=== PATIENT | female | born 1935 | race Caucasian/White ===

== ENCOUNTER → 2017-03-02 | Outpatient (CLI) | payer MEDICARE, OTHER | END | disposition home or self-care (01) | LOC: GMAM 10:21 | PROVIDERS: ATTEND Family Medicine | DX: E53.8 Deficiency of other specified B group vitamins (principal) ==

== ENCOUNTER → 2017-03-19 | Outpatient (CLI) | payer MEDICARE, OTHER | END | disposition home or self-care (01) | LOC: GMAM 10:49 | PROVIDERS: ATTEND Family Medicine | DX: R80.9 Proteinuria, unspecified (principal) ==

== ENCOUNTER 2017-07-20 11:58 | Emergency (ER) | payer MEDICARE, OTHER ==
[2017-07-20 12:29] VITALS: TEMP 96.8
--- NOTE | 2017-07-20 12:54 | RAD ---
Single frontal view pelvis. Two-view left hip. Indication: Pain s/p fall 4 days ago Comparison: None. Impression: Prior ORIF of a left hip fracture. No acute fracture the left hip or pelvis identified, however evaluation is limited due to the degree of osteopenia. If high clinical concern for fracture, correlation with CT or MRI recommended. 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 Lower lumbar disc disease. Electronically signed by: Travis Gupta MD 07/20/2017 12:53 PM CDT
--- NOTE | 2017-07-20 13:07 | ED.PDOC ---
History of Present Illness - General Chief Complaint: Lower Extremity Injury Stated Complaint: fall on Sunday Time Seen by Provider: 07/20/17 12:23 Source: patient, RN notes reviewed, Vital Signs reviewed, family - Niece Exam Limitations: no limitations - History of Present Illness Initial Comments: Patient lost her balance and fell on 07/16/17. She is still having L posterior hip pain and niece is concerned. She also hit her elbow which is very bruised but does not hurt at all. She reports the pain is better when she first gets up in the morning. She has been limiting her walking due to the pain. Occurred: other - 4 days ago Pain - Lower Extremity: moderate: Left Thigh/Hip Method of Injury: fell Improving Factors: rest Worsening Factors: movement Allergies/Adverse Reactions: Allergies Pneumococcal Vaccine Allergy (Verified 07/20/17 12:32) Home Medications: Ambulatory Orders Aspirin [Goodsense Aspirin Low Dos] 81 mg PO DAILY 07/13/14 Cephalexin 500 mg PO BEDTIME 07/13/14 Doxazosin Mesylate 4 mg PO DAILY 07/13/14 Pregabalin [Lyrica] 75 mg PO BEDTIME 07/13/14 Alprazolam [Xanax] 1 mg PO BID 03/27/16 amLODIPine BESYLATE [Norvasc] 10 mg PO DAILY 03/27/16 Doxycycline Hyclate 50 mg PO BID #15 cap 03/29/16 Review of Systems - Review of Systems Constitutional: States: no symptoms reported Respiratory: States: no symptoms reported Cardiology: States: no symptoms reported Gastrointestinal/Abdominal: States: no symptoms reported Musculoskeletal: States: see HPI Skin: States: see HPI Neurological: States: no symptoms reported, numbness, paresthesia, tingling, weakness All other Systems: No Change from Baseline Past Medical History (General) - Patient Medical History Hx Seizures: No Hx Stroke: No Hx Dementia: No Hx Asthma: No Hx of COPD: No Hx Cardiac Disorders: No Hx Congestive Heart Failure: No Hx Pacemaker: No Hx Hypertension: Yes Hx Thyroid Disease: No Hx Diabetes: No Hx Gastroesophageal Reflux: No Hx Renal Disease: No Hx Cancer: No Hx of HIV: No Hx Hepatitis C: No Hx MRSA: No Surgical History: other - Vaccination History Hx Tetanus, Diphtheria Vaccination: No Hx Influenza Vaccination: Yes - 2017 Hx Pneumococcal Vaccination: - allergic - Social History Hx Tobacco Use: No Hx Chewing Tobacco Use: No Hx Alcohol Use: No Hx Substance Use: No Hx Substance Use Treatment: No Hx Depression: No Hx Physical Abuse: No Hx Emotional Abuse: No Hx Suspected Abuse: No - Female History Patient : No Family Medical History - Family History Mother Living Status: Hx Family Hypertension: Yes Father Living Status: Hx Family Stroke: Yes Physical Exam - Physical Exam General Appearance: Alert, Comfortable, No apparent distress, Well Developed, Well Groomed, Well Hydrated, Well Nourished Neck: supple, normal inspection Cardiovascular/Respiratory: normal peripheral pulses Thigh/Hip: normal inspection, non-tender, no evidence of injury, normal ROM Leg: normal inspection, non-tender, no evidence of injury, normal ROM Knee: normal inspection, non-tender, no evidence of injury, normal ROM Foot: normal inspection, non-tender, no evidence of injury, normal ROM Neuro/Tendon: normal sensation, normal motor functions, normal tendon functions , no evidence tendon injury Mental Status: alert, oriented x 3 Skin: normal color - exceept L elbow: ecchymosis w/o tenderness. FROM, warm/dry Comments: Vital Signs 07/20/17 12:04 Temperature 96.8 F L Pulse Rate [ 94 H left brachial] Respiratory 16 Rate Blood Pressure 126/66 [left brachial] O2 Sat by Pulse 94 L Oximetry Progress - EKG/XRAY/CT XRAY: L hip: no fracture per Rad - No fracture Departure - Departure Clinical Impression: Contusion of left elbow, initial encounter Contusion of hip Qualifiers: Encounter type: initial encounter Laterality: left Qualified Code(s): S70.02XA - Contusion of left hip, initial encounter Time of Disposition: 13:09 Disposition: Discharge to Home or Self Care Condition: Fair Departure Forms: ED Discharge - Pt. Copy, Patient Portal Self Enrollment Instructions: DI for Contusion Diet: resume usual diet Activity: increase activity as tolerated Referrals: Wilberto Lozada MD [Primary Care Provider] - 1-2 Weeks Home Medications: Ambulatory Orders Aspirin [Goodsense Aspirin Low Dos] 81 mg PO DAILY 07/13/14 Cephalexin 500 mg PO BEDTIME 07/13/14 Doxazosin Mesylate 4 mg PO DAILY 07/13/14 Pregabalin [Lyrica] 75 mg PO BEDTIME 07/13/14 Alprazolam [Xanax] 1 mg PO BID 03/27/16 amLODIPine BESYLATE [Norvasc] 10 mg PO DAILY 03/27/16 Doxycycline Hyclate 50 mg PO BID #15 cap 03/29/16
[2017-07-20 13:30] VITALS: BP 122/67; O2SAT 96
== END 2017-07-20 13:26 | disposition home or self-care (01) ==
LOC: ER 11:58
DX: S70.02XA Contusion of left hip, initial encounter (principal); S50.02XA Contusion of left elbow, initial encounter; I10 Essential (primary) hypertension; Z79.82 Long term (current) use of aspirin; Z88.7 Allergy status to serum and vaccine; W19.XXXA Unspecified fall, initial encounter; Y92.9 Unspecified place or not applicable

== ENCOUNTER → 2017-08-07 | Outpatient (CLI) | payer MEDICARE, OTHER ==
--- NOTE | 2017-08-07 19:01 | MRI ---
Study: MRI of the Left Hip. Indication: HIP PAIN Technique: Multiplanar, multi sequence MRI of the left hip was obtained without intravenous contrast. Metal artifact reduction techniques utilized. Comparison: Radiograph July 20, 2017. Findings: Prior ORIF of a left femoral neck fracture with 3 surgical screws noted. Susceptibility artifact present despite metal artifact reduction techniques. Subacute appearing nondisplaced fractures of the left pubic root and left inferior pubic ramus noted with marrow edema and mild callus formation. Associated intramuscular edema within the left adductor musculature. A left zone 1 and possibly zone 2 subacute to acute left sacral ala fracture noted as well with significant marrow edema throughout the left sacral ala. Severe pubic symphysis osteoarthritis noted with presumably reactive marrow edema within the parasymphyseal pubic bones. No acute fracture of the femoral necks identified. At least mild bilateral hip osteoarthritis. Pronounced lower lumbar disc disease. No high-grade pelvic tendon tear. Impression: Subacute appearing nondisplaced left pubic root, left inferior pubic ramus, and left sacral ala fractures as above. Additional findings as above. Electronically signed by: Travis Gupta MD 08/07/2017 7:00 PM [facility]
== END | disposition home or self-care (01) ==
LOC: MRI 11:11
PROVIDERS: ATTEND Family Medicine
DX: M16.12 Unilateral primary osteoarthritis, left hip (principal)

== ENCOUNTER → 2018-03-26 | Outpatient (CLI) | payer MEDICARE, OTHER ==
--- NOTE | 2018-03-26 17:06 | US ---
EXAM DESCRIPTION: THYROID ULTRASOUND CLINICAL INFORMATION: Palpable lump on the left facial cheek, next to the nose for several weeks. Injury to the area years ago. COMPARISON: None Available. TECHNIQUE: Transcutaneous scanning: Santo-scale and Doppler modes. FINDINGS: A homogeneous hypoechoic soft tissue mass is noted in the subcutaneous tissues with smooth and lobulated margins measuring 3.2 x 1.5 x 0.9 cm. Parallel to the skin surface. Small feeding vessel is noted. Posterior acoustic enhancement. No adjacent distinct solid masses or cysts. No large calcifications or parenchymal edema. IMPRESSION: Probably benign subcutaneous lesion on the left facial cheek medially abutting the nose. Smooth margins and homogeneous low echoes. Consider dermatology consult. Electronically signed by: Bacilio Jasso MD 03/26/2018 5:05 PM CDT
== END ==
LOC: US 13:56
PROVIDERS: ATTEND Family Medicine
DX: R22.0 Localized swelling, mass and lump, head (principal)

== ENCOUNTER → 2018-04-07 | Outpatient (CLI) | payer MEDICARE, OTHER | LOC: YCHH 08:47 | PROVIDERS: ATTEND Family Medicine | DX: E53.8 Deficiency of other specified B group vitamins (principal); N18.9 Chronic kidney disease, unspecified; D64.9 Anemia, unspecified; E78.5 Hyperlipidemia, unspecified; G30.9 Alzheimer's disease, unspecified ==

== ENCOUNTER → 2018-10-02 | Outpatient (CLI) | payer MEDICARE, OTHER | LOC: YCHH 08:44 | PROVIDERS: ATTEND Family Medicine | DX: N18.9 Chronic kidney disease, unspecified (principal); E53.8 Deficiency of other specified B group vitamins; E78.5 Hyperlipidemia, unspecified; D64.9 Anemia, unspecified ==

== ENCOUNTER → 2019-01-08 | Outpatient (CLI) | payer MEDICARE, OTHER | LOC: LAB.O 14:17 | PROVIDERS: ATTEND Urology | DX: R31.0 Gross hematuria (principal) ==

== ENCOUNTER → 2019-05-20 | Outpatient (CLI) | payer MEDICARE, OTHER | LOC: GMAM 10:48 | PROVIDERS: ATTEND Family Medicine | DX: E53.8 Deficiency of other specified B group vitamins (principal); I10 Essential (primary) hypertension ==

== ENCOUNTER → 2019-07-08 | Outpatient (CLI) | payer MEDICARE, OTHER | LOC: GMAM 14:36 | PROVIDERS: ATTEND Family Medicine | DX: R10.13 Epigastric pain (principal); N39.0 Urinary tract infection, site not specified ==

== ENCOUNTER 2019-07-14 17:15 | Emergency (ER) | payer MEDICARE, OTHER ==
[2019-07-14 19:18] VITALS: TEMP 97.9
[2019-07-14] MEDS ORDERED: MORPHINE SULFATE INJ 10 MG/ML VIAL IV ONE (19:41)
[2019-07-14] MEDS ORDERED: SODIUM CHLORIDE 0.9% 1000ML 500 ML IVS ONE (19:41)
[2019-07-14] MEDS ORDERED: ONDANSETRON INJ 4 MG/2 ML VIAL IV ONE (19:41)
--- NOTE | 2019-07-14 19:45 | ED.PDOC ---
History of Present Illness - General Chief Complaint: Abdominal Pain Stated Complaint: abdominal pain and constipation since Sunday Time Seen by Provider: 07/14/19 19:39 Information Source: patient, family Exam Limitations: no limitations Additional Information: Olivia Tamayo is an 84-year-old female who presents to the ED with chief complaint of abdominal pain. Patient's pain has been on and off for the past 2 weeks. Patient saw her PCP nurse practitioner who diagnosed her with constipation and a UTI 2 weeks ago and gave her prescription for antibiotics and a laxative. Patient's symptoms persisted and she followed up with her physician earlier this week who indicated that her UTI had resolved. Patient's symptoms persisted and she called her doctor today who referred her to the ED for further evaluation and CT scanning. Patient indicates her pain is diffuse and moderate in intensity and is a dull crampy pain. She indicates however that in the ED her pain has resolved at this time. Patient has had a good bowel movement yesterday and today. She denies any blood in her stool or hematuria. She does indicate that she has continued urinary frequency and she was up every hour last night voiding. Surgical history on her abdomen. Patient had nausea but no vomiting. Review of Systems - Review of Systems Constitutional: States: no symptoms reported. Denies: chills, fever EENTM: States: no symptoms reported Respiratory: States: no symptoms reported. Denies: cough, short of breath Cardiology: States: no symptoms reported. Denies: chest pain, palpitations Gastrointestinal/Abdominal: States: see HPI, nausea. Denies: diarrhea, vomiting Genitourinary: States: frequency. Denies: dysuria Musculoskeletal: States: no symptoms reported Skin: States: no symptoms reported Neurological: States: no symptoms reported All other Systems: Reviewed and Negative Past Medical History (General) - Patient Medical History Hx Seizures: No Hx Stroke: No Hx Dementia: No Hx Asthma: No Hx of COPD: No Hx Cardiac Disorders: No Hx Congestive Heart Failure: No Hx Pacemaker: No Hx Hypertension: Yes Hx Thyroid Disease: No Hx Diabetes: No Hx Gastroesophageal Reflux: No Hx Renal Disease: No Hx Cancer: No Hx of HIV: No Hx Hepatitis C: No Hx MRSA: No Surgical History: tonsillectomy, Hysterectomy - Vaccination History Hx Tetanus, Diphtheria Vaccination: No Hx Influenza Vaccination: Yes - 2017 Hx Pneumococcal Vaccination: - allergic - Social History Hx Tobacco Use: No Hx Chewing Tobacco Use: No Hx Alcohol Use: No Hx Substance Use: No Hx Substance Use Treatment: No Hx Depression: No Hx Physical Abuse: No Hx Emotional Abuse: No Hx Suspected Abuse: No - Female History Patient : No - Triage Comment ED Triage Comment: Family states patient had stomach pain and constipation off and on for several weeks thought she was getting better. Today started ahving more stomach pain and Dr. Dianna Lozada recommended patient come to the Ed for CT scan and other testing Family Medical History - Family History Mother Living Status: Hx Family Hypertension: Yes Father Living Status: Hx Family Stroke: Yes Physical Exam - Physical Exam General Appearance: Alert, Comfortable, Frail, No apparent distress Eyes, Ears, Nose, Throat Exam: normal ENT inspection, pharynx normal Neck: supple, normal inspection Respiratory: chest non-tender, lungs clear, normal breath sounds, no respiratory distress, no accessory muscle use Cardiovascular/Chest: normal peripheral pulses, regular rate, rhythm, no edema Gastrointestinal/Abdominal: normal bowel sounds, non tender, soft, no organomegaly, no pulsatile mass Back Exam: normal inspection, no CVA tenderness Extremity: normal range of motion, non-tender Neurologic: security manager II-XII nml as tested, no motor/sensory deficits, alert, normal mood/affect, oriented x 3 Skin Exam: normal color, warm/dry Lymphatic: no adenopathy Progress - Progress Progress: 07/14/19 19:49 Differential diagnosis includes but is not limited to constipation, UTI, irritable bowel syndrome, colitis. 07/14/19 22:25 patient remains feeling well and she is asymptomatic, without any abdominal pain. Patient's labs are completely normal including her UA and her CT abdomen and pelvis shows no acute findings. Patient's abdomen is benign and nontender. Will DC with Bentyl and patient to follow-up with her PCP this week for reevaluation. Vital signs stable, patient NAD and looks clinically well and is safe for discharge with outpatient follow-up. Follow-up instructions, discharge instructions and return to ED precautions discussed with patient. Patient voices understanding and willingness to comply with instructions. All laboratory and radiographic results have been discussed with the patient, and all questions answered. Patient happy with plan. - Results/Orders Results/Orders: 07/14/19 19:39 Hold Metformin x 48Hrs [id number] 07/14/19 19:50 EKG Assessment ONCE Laboratory Results - last 24 hr 07/14/19 07/14/19 07/14/19 19:50 19:50 19:50 WBC 5.3 RBC 5.05 Hgb 14.1 Hct 42.2 MCV 83.6 MCH 28.0 MCHC 33.5 RDW 12.8 Plt Count 250 MPV 7.6 Absolute Neuts (auto) 2.90 Absolute Lymphs (auto) 1.70 Absolute Monos (auto) 0.50 Absolute Eos (auto) 0.10 Absolute Basos (auto) 0.00 Neutrophils % 55.3 Lymphocytes % 32.7 Monocytes % 8.8 Eosinophils % 2.4 Basophils % 0.8 Sodium 132 L Potassium 3.6 Chloride 99 L Carbon Dioxide 20 L Anion Gap 16.6 BUN 8 Creatinine 0.64 BUN/Creatinine Ratio 12.5 Random Glucose 103 Serum Osmolality 263.1 L Lactic Acid 0.9 Calcium 9.2 Total Bilirubin 0.9 AST 24 ALT 15 Alkaline Phosphatase 67 Serum Total Protein 7.5 Albumin 3.9 Globulin 3.6 H Albumin/Globulin Ratio 1.1 Urine Color Urine Appearance Urine pH Ur Specific [place] Urine Protein Urine Glucose (UA) Urine Ketones Urine Blood Urine Nitrite Urine Bilirubin Urine Urobilinogen Ur Leukocyte Esterase Urine RBC Urine WBC Ur Epithelial Cells Urine Bacteria 07/14/19 20:55 WBC RBC Hgb Hct MCV MCH MCHC RDW Plt Count MPV Absolute Neuts (auto) Absolute Lymphs (auto) Absolute Monos (auto) Absolute Eos (auto) Absolute Basos (auto) Neutrophils % Lymphocytes % Monocytes % Eosinophils % Basophils % Sodium Potassium Chloride Carbon Dioxide Anion Gap BUN Creatinine BUN/Creatinine Ratio Random Glucose Serum Osmolality Lactic Acid Calcium Total Bilirubin AST ALT Alkaline Phosphatase Serum Total Protein Albumin Globulin Albumin/Globulin Ratio Urine Color Yellow Urine Appearance Clear Urine pH 6.5 Ur Specific [place] <= 1.005 Urine Protein Negative Urine Glucose (UA) Negative Urine Ketones Negative Urine Blood Trace-lysed H Urine Nitrite Negative Urine Bilirubin Negative Urine Urobilinogen 0.2 Ur Leukocyte Esterase Negative Urine RBC 0-1 Urine WBC 0 Ur Epithelial Cells 0 Urine Bacteria 0 Departure - Departure Clinical Impression: Abdominal pain Qualifiers: Abdominal location: unspecified location Qualified Code(s): R10.9 - Unspecified abdominal pain Time of Disposition: 22:28 Disposition: Discharge to Home or Self Care Condition: Good Departure Forms: ED Discharge - Pt. Copy, Patient Portal Self Enrollment Instructions: DI for Abdominal Pain-Adult Diet: resume usual diet Referrals: Wilberto Lozada MD [Primary Care Provider] - 1-5 Days Prescriptions: Dicyclomine HCl [Bentyl] 20 mg PO TID PRN #20 tab PRN Reason: Pain Home Medications: Ambulatory Orders Aspirin [Goodsense Aspirin Low Dos] 81 mg PO DAILY 07/13/14 Cephalexin 500 mg PO BEDTIME 07/13/14 Doxazosin Mesylate 4 mg PO DAILY 07/13/14 Pregabalin [Lyrica] 75 mg PO BEDTIME 07/13/14 Alprazolam [Xanax] 1 mg PO BID 03/27/16 amLODIPine BESYLATE [Norvasc] 10 mg PO DAILY 03/27/16 Doxycycline Hyclate 50 mg PO BID #15 cap 03/29/16 Dicyclomine HCl [Bentyl] 20 mg PO TID PRN #20 tab 07/14/19
--- NOTE | 2019-07-14 21:28 | CT ---
EXAM DESCRIPTION: Abdomen/Pelvis w/Contrast CLINICAL HISTORY: ulcerative colitis COMPARISON: None Available TECHNIQUE: Contiguous axial images of the abdomen and pelvis were obtained followed by reconstruction images. This exam was performed according to our departmental dose-optimization program, which includes automated exposure control, adjustment of the mA and/or kV according to patient size and/or use of iterative reconstruction technique. FINDINGS: There are bilateral renal cysts. There is atherosclerosis. There are diverticuli without CT evidence of acute diverticulitis. Calcifications within the pelvis compatible with phleboliths. Linear opacities within the lungs may represent scar versus subsegmental atelectasis. There are degenerative changes of lumbar spine. There is evidence of prior L2 vertebroplasty. The liver, spleen, pancreas and kidneys are otherwise within normal limits. There is no hydronephrosis or renal stones. The gallbladder is unremarkable by CT criteria. Adrenal glands are within normal limits. Aorta is of normal caliber and tapering. There is no free fluid in the abdomen or pelvis. There is no bowel obstruction. There is no stranding of the mesenteric fat to suggest an inflammatory response. The appendix is within normal limits. There is no pericecal inflammation. IMPRESSION: No acute intra-abdominal abnormality. Electronically signed by: Prem Banerjee MD 07/14/2019 9:21 PM CDT
[2019-07-14 22:32] VITALS: BP 129/74; O2SAT 98
== END 2019-07-14 22:50 | disposition home or self-care (01) ==
LOC: ER 17:15
DX: R10.84 Generalized abdominal pain (principal); R11.0 Nausea; I10 Essential (primary) hypertension; Z87.440 Personal history of urinary (tract) infections
CPT/HCPCS: 36415; 74177; 80053; 81001; 83605; 85025; 93005; J2270; J2405; J7030

== ENCOUNTER → 2019-08-12 | Outpatient (CLI) | payer MEDICARE, OTHER | LOC: GMAM 14:15 | PROVIDERS: ATTEND Family Medicine | DX: R10.13 Epigastric pain (principal) ==

== ENCOUNTER → 2019-08-14 | Outpatient (CLI) | payer MEDICARE, OTHER ==
--- NOTE | 2019-08-14 14:40 | US ---
EXAM DESCRIPTION: Abdomen,Complete: Ultrasound. CLINICAL HISTORY: ABD PAIN COMPARISON: CT scan of the abdomen or 10 July 2019. "No acute intra-abdominal abnormality." TECHNIQUE: Transabdominal scanning: grayscale and Doppler modes. FINDINGS: Gallbladder: Normal size and echogenicity with no intraluminal stones or sludge. Wall thickness 2.4 mm. No fluid. Nontender with transducer pressure. Common bile duct: 3.7 cm normal caliber. Liver: Long axis right lobe 11.4 cm. Heterogeneous increased echogenicity. Normal caliber of the ducts and physiologic vascularity. Smooth capsule with no ascites.. Pancreas: Included segments with normal appearance, duct not seen.. Abdominal aorta: Normal caliber from the proximal segment to the distal bifurcation. IVC: visualized; normal caliber. Spleen normal echogenicity; long axis measurement is 9.8 cm. Right kidney: 9.6 cm long axis. Minimal cortical thinning and increased cortical echogenicity less than the liver. No echogenic stones or hydronephrosis. Left kidney: 9.2 cm long axis. Minimal cortical thinning and minimal increased echogenicity of the cortex. 1.5 cm and 1.6 cm simple cortical cysts. No echogenic stones or hydronephrosis. IMPRESSION: 1. Heterogeneous fatty infiltration of the liver. Smooth capsule no ascites. Normal caliber of the ducts and physiologic vascular flow. Not enlarged. 2. Age-related changes in the kidneys with 2 simple cysts in the left kidney. 3. Gallbladder, common bile duct, pancreas, and spleen are unremarkable. Electronically signed by: Bacilio Jasso MD 08/14/2019 2:38 PM [employer]
== END ==
LOC: US 13:13
PROVIDERS: ATTEND Family Medicine
DX: K76.0 Fatty (change of) liver, not elsewhere classified (principal); N28.1 Cyst of kidney, acquired

== ENCOUNTER → 2020-04-23 | Outpatient (CLI) | payer MEDICARE, OTHER ==
--- NOTE | 2020-04-23 18:15 | US ---
EXAM DESCRIPTION: Soft Tissue,Head/Neck: ULTRASOUND. CLINICAL HISTORY: 84 years Female SUBCUTANEOUS MASS LEFT CHEEK COMPARISON: None Available. TECHNIQUE: Transcutaneous scanning: Santo-scale and Doppler modes. FINDINGS: Scanning of the left upper lip over palpable mass. Left lateral lip to the nostril. Mostly circumscribed hypoechoic mass with mild heterogeneity, wider than tall orientation, posterior acoustic enhancement and minimally vascular. Posterior acoustic enhancement. Measures 3.4 x 1.0 cm in the sagittal plane 2.4 cm transverse. No distinct cyst, no fluid collection, no large calcifications. Technologist noted no skin lesion. IMPRESSION: Solid, partially vascular, mostly circumscribed mass between the lateral upper lip and the lateral nose, 3.4 cm in the sagittal axis. Differential includes benign and malignant neoplasms from the oral mucosa, or old subcutaneous scar tissue. Consider tissue sampling. Electronically signed by: Bacilio Jasso MD 04/23/2020 6:13 PM CDT
== END ==
LOC: US 10:00
PROVIDERS: ATTEND Surgery
DX: R22.0 Localized swelling, mass and lump, head (principal)

== ENCOUNTER → 2020-08-16 | Outpatient (CLI) | payer MEDICARE, OTHER | LOC: YCHH 08:59 | PROVIDERS: ATTEND Family Medicine | DX: N39.0 Urinary tract infection, site not specified (principal) ==